=== PATIENT | male | born 1955 | race Two or more races ===

== ENCOUNTER 2021-12-09 05:45 | Day surgery (SDC) | payer OTHER ==
[~2021-12-09] VITALS: Ht 180.3 cm; Wt 81.6 kg
[~2021-12-09 05:45] MED LIST: LIPITOR20 MG PO
== END 2021-12-09 14:35 | disposition home or self-care (01) ==
LOC: CIR.AMB 05:45
PROVIDERS: ATTEND Specialist
DX: K40.90 Unilateral inguinal hernia, without obstruction or gangrene, not specified as recurrent (principal); Z20.822 Contact with and (suspected) exposure to COVID-19; E78.5 Hyperlipidemia, unspecified; Z86.16 Personal history of COVID-19; F17.210 Nicotine dependence, cigarettes, uncomplicated
CPT/HCPCS: 49505; C1781